=== PATIENT | male | born 1945 | race Caucasian/White ===

== ENCOUNTER 2017-10-29 14:30 | Inpatient (IN) | payer OTHER, MEDICARE ==
[~2017-10-29] VITALS: Ht 177.8 cm; Wt 99.8 kg
[2017-10-29 15:47] LABS: BASOPHILS # (AUTO) 0.1 X10'3 (0-0.2); BASOPHILS % (AUTO) 0.6 % (0-1); EOSINOPHILS # (AUTO) 0.2 X10'3 (0-0.9); LYMPHOCYTES # (AUTO) 2.1 X10'3 (1.1-4.8); LYMPHOCYTES % (AUTO) 21.8 % (21-51); MEAN CORPUSCULAR HGB CONC 35.3 % (33.0-36.5); MEAN CORPUSCULAR VOLUME 93.5 FL (78-98); MEAN PLATELET VOLUME 7.2 FL (7.4-10.4); MONOCYTES # (AUTO) 0.7 X10'3 (0-0.9); MONOCYTES % (AUTO) 7.1 % (2-12); NEUTROPHILS # (AUTO) 6.6 X10'3 (1.8-7.7); NEUTROPHILS % (AUTO) 68.5 % (42-75); PRE OP HEMATOCRIT 42.4 % (42.0-52.0); PRE OP PLATELET COUNT 258 X10'3 (140-440); RED BLOOD COUNT 4.54 X10'6 (4.70-6.10); RED CELL DISTRIBUTION WIDTH 13.9 % (11.5-14.5)
[2017-10-29 15:57] LABS: PRE OP PROTIME 10.6 SECONDS (9.0-12.0)
[2017-10-29 16:03] LABS: ALBUMIN 3.6 G/DL (3.4-5.0); ALBUMIN/GLOBULIN RATIO 0.9 (1.1-1.5); ALKALINE PHOSPHATASE 93 IU/L (46-116); BLOOD UREA NITROGEN 19 MG/DL (7-18); BUN/CREATININE RATIO 19.2 (5.4-32.0); CHLORIDE 105 MMOL/L (99-107); CREATININE 0.99 MG/DL (0.60-1.10); PRE OP ANION GAP 10 (8-16); PRE OP AST 44 U/L (10-37); PRE OP BILIRUB, TOTAL 0.7 MG/DL (0.0-1.0); PRE OP GLUCOSE 93 MG/DL (70-104); PRE OP SODIUM 142 MMOL/L (135-145); TOTAL CARBON DIOXIDE 27.1 MMOL/L (24-32); TOTAL PROTEIN 7.6 G/DL (6.4-8.2); eGFR 75 ML/MIN
[2017-10-29 16:04] LABS: PRE OP ALT 86 U/L (30-65)
[2017-10-29] MEDS ORDERED: CETI10TA18 PO (17:22)
[2017-10-29] MEDS ORDERED: ATOR40TA PO (17:22)
[2017-10-29] MEDS ORDERED: OMEP20CA10 PO (17:22)
[2017-10-29] MEDS ORDERED: LOSA25TA96 PO (17:22)
[2017-10-29] MEDS ORDERED: CHOL100046 PO (17:22)
[2017-10-29] MEDS ORDERED: AMLO2.5T2 PO (17:22)
[2017-10-29] MEDS ORDERED: HYDR-3965 PO (17:22)
[2017-10-29] MEDS ORDERED: TRAZ-143 PO (17:22)
[2017-11-03] MEDS ORDERED: BUPR300T54 PO (12:12)
[2017-11-04] MEDS ORDERED: ringers solution, lacted 1,000 ML IV SCH (05:00)
[2017-11-04] MEDS ORDERED: famotidine 20mg tablet PO ONE (05:30)
[2017-11-04] MEDS ORDERED: tranexamic acid inj. 1,000 MG in normal saline 100ml IV soln 90 ML IV ONE (05:30)
[2017-11-04] MEDS ORDERED: acetaminophen 325mg tablet PO ONE (05:30)
[2017-11-04] MEDS ORDERED: vancomycin inj 1,500 MG in normal saline 300ml IV soln IV ONE (05:30)
[2017-11-04] MEDS ORDERED: metoclopramide 5 mg/ml inj IV ONE (05:30)
[2017-11-04] MEDS ORDERED: oxyCODONE SR 10mg (sust. release) tab PO ONE (05:30)
[2017-11-04] MEDS ORDERED: ceFAZolin 2gm in dextrose, iso 100 ML IV ONE (05:30)
[2017-11-04] MEDS ORDERED: gabapentin 300mg capsule PO ONE (05:30)
[2017-11-04] MEDS ORDERED: LIDOcaine 1% (10mg/ml) 2ml vial ONE (05:53)
[2017-11-04] MEDS ORDERED: losartan 25mg tablet PO ONE (06:30)
[2017-11-04] MEDS ORDERED: amLODIPine 2.5mg tablet PO ONE (06:30)
[2017-11-04] MEDS ORDERED: HYDROcodone/acetaminophen 5mg/325mg tablet PO ONE (06:30)
[2017-11-04] MEDS ORDERED: ketorolac trometh. 30mg/ml inj. ONE (06:53)
[2017-11-04] MEDS ORDERED: ROPIVAcaine 0.5% (5mg/ml) 30ml vial ONE (06:54)
[2017-11-04] MEDS ORDERED: vancomycin 1,000mg inj ONE (06:54)
[2017-11-04] MEDS ORDERED: ceFAZolin 1000mg inj ONE (06:54)
[2017-11-04] MEDS ORDERED: morphine 10mg/ml inj. ONE (06:54)
== END 2017-11-04 08:24 | disposition home health service (06) | DRG 554 ==
LOC: EDSTATUS 14:30 → PAS IN 11-04 05:20 → EDSTATUS 11-04 07:30
PROVIDERS: ADMIT Orthopaedic Surgery; ATTEND Orthopaedic Surgery
DX: M17.12 Unilateral primary osteoarthritis, left knee (principal); E66.9 Obesity, unspecified; F32.9 Major depressive disorder, single episode, unspecified; I10 Essential (primary) hypertension; K21.9 Gastro-esophageal reflux disease without esophagitis; Z53.8 Procedure and treatment not carried out for other reasons; Z79.899 Other long term (current) drug therapy; Z86.73 Personal history of transient ischemic attack (TIA), and cerebral infarction without residual deficits; Z68.31 Body mass index [BMI] 31.0-31.9, adult
CPT/HCPCS: 36415; 80053; 85025; 85610; 85730; 87070; J0690; J1885; J2270; J2765; J2795; J3370; J3490; J7030; J7120